=== PATIENT | male | born 1985 | race African-American/Black ===

== ENCOUNTER 2020-10-21 07:59 | Emergency (ER) | payer MEDICAID ==
[~2020-10-21] VITALS: Ht 170.2 cm; Wt 79.0 kg
[2020-10-21] MEDS ORDERED: ONDANSETRON HCL 4MG/2ML INJ IV STA (08:32)
[2020-10-21] MEDS ORDERED: KETOROLAC 30MG/ML VIAL IV STA (08:32)
[2020-10-21] MEDS ORDERED: SODIUM CHLORIDE 0.9% 1,000 ML IV ONE (08:45)
[2020-10-21 09:33] LABS: BASOPHILS % 0.4 % (0.0-2.0); EOSINOPHILS % 0.2 % (0.0-5.0); HEMATOCRIT. 45.4 % (42.0-52.0); LYMPHOCYTES % 9.6 % (20.0-50.0); MEAN CORPUSCULAR HEMOGLOBIN 31.9 pg (28.0-32.0); MEAN CORPUSCULAR VOLUME 96.4 fL (80.0-94.0); MONOCYTES % 4.3 % (2.0-8.0); NEUTROPHILS % 85.5 % (40.0-76.0); PLATELET 261 x1000/uL (130-400); RED BLOOD CELL COUNT 4.71 mill/uL (4.7-6.1); RED CELL DISTRIBUTION WIDTH 12.6 % (11.6-14.6)
[2020-10-21 09:40] LABS: CHLORIDE 105 mEq/L (98-107)
[2020-10-21 09:44] LABS: ETHANOL BLOOD < 10 mg/dL; PROTHROMBIN TIME 10.4 sec (9.6-11.0)
[2020-10-21] MEDS ORDERED: OMEP40CA12 MT (11:02)
[2020-10-21] MEDS ORDERED: ONDA4TAB5 MT (11:03)
[2020-10-21 11:13] VITALS: BP 125/82
== END 2020-10-21 12:00 | disposition home or self-care (01) ==
LOC: ER 07:59
DX: R07.89 Other chest pain (principal); R10.9 Unspecified abdominal pain; R11.2 Nausea with vomiting, unspecified
CPT/HCPCS: 36415; 71045; 74018; 80053; 80320; 83690; 84484; 85025; 85610; 96361; 96374; 96375; 99284; J1885; J2405; J7030; G0480